=== PATIENT | female | born 1990 | race Caucasian/White ===

== ENCOUNTER 2018-12-07 21:01 | Inpatient (IN) | payer OTHER ==
[2018-12-07] MEDS ORDERED: LACTATED RINGER'S 1,000 ML IV (22:24)
[2018-12-07] MEDS: LACTATED RINGER'S 1,000 ML IV ×2 (22:26→23:06)
[2018-12-07] MEDS ORDERED: OXYTOCIN 30 UNITS/LR 500 ML IV (22:30)
[2018-12-07] MEDS ORDERED: CARBOPROST 250 MCG INJ IM (22:30)
[2018-12-07] MEDS ORDERED: METHYLERGONOVINE 0.2 MG INJ IM (22:30)
[2018-12-07] MEDS ORDERED: IBUPROFEN 600 MG TAB PO (22:30)
[2018-12-07] MEDS ORDERED: BUTORPHANOL 2 MG INJ IV (22:30)
[2018-12-07] MEDS ORDERED: MISOPROSTOL 200 MCG TAB PR (22:30)
[2018-12-07] MEDS ORDERED: LIDOCAINE 1% (MPF) 30 ML INJ INJ (22:30)
[2018-12-07 22:31] LABS: WHITE BLOOD COUNT 11.7 10^3/ul (4.8-10.8)
[2018-12-07 22:31] LABS: ADD MAN DIFF? NO; BASOPHILS % 0.3 % (0.0-2.0); EOSINOPHILS % 0.3 % (0.0-7.0); HEMATOCRIT 34.6 % (37.0-47.0); HEMOGLOBIN 11.2 g/dl (12.0-16.0); LYMPHOCYTES # 1.7 10^3/ul (0.8-2.9); LYMPHOCYTES % 14.8 % (15.0-51.0); MEAN CORPUSCULAR HEMOGLOBIN 26.6 pg (29.0-33.0); MEAN CORPUSCULAR HGB CONC 32.4 g/dl (32.0-37.0); MEAN CORPUSCULAR VOLUME 82.2 fl (82.0-101.0); MONOCYTE # 0.8 10^3/ul (0.3-0.9); MONOCYTES % 6.7 % (0.0-11.0); NEUTROPHIL # 9.1 10^3/ul (1.6-7.5); NEUTROPHILS % 77.5 % (39.0-77.0); PLATELET COUNT 286 10^3/UL (140-415); RED BLOOD COUNT 4.21 10^6/ul (4.20-5.40); RED CELL DISTRIBUTION WIDTH 14.4 % (11.5-14.5)
[2018-12-07 22:50] LABS: INR 0.86; PROTIME 11.8 Sec (11.9-14.9); PT RATIO 0.9
[2018-12-07 22:51] LABS: PARTIAL THROMBOPLASTIN TIME 27.1 Sec (23.0-35.0)
[2018-12-07 23:18] LABS: HEPATITIS B SURFACE ANTIGEN NEGATIVE (NEGATIVE)
[2018-12-07] MEDS ORDERED: FENTAnyl 2MCG/ML-ROPIV 0.2% 100 ML (23:20)
[2018-12-07] MEDS: FENTAnyl 2MCG/ML-ROPIV 0.2% 100 ML BAG EPI (23:57)
[2018-12-08] MEDS ORDERED: ONDANSETRON 4 MG INJ IV
[2018-12-08] MEDS ORDERED: NALOXONE (0.4 MG/ML) INJ IV
[2018-12-08] MEDS: OXYTOCIN 30 UNITS/LR 500 ML IV ×4 (00:45→21:02)
[2018-12-08] MEDS ORDERED: OXYTOCIN 30 UNITS/LR 500 ML IV (01:00)
[2018-12-08] MEDS ORDERED: METHYLERGONOVINE 0.2 MG INJ IM (01:00)
[2018-12-08] MEDS ORDERED: CARBOPROST 250 MCG INJ IM (01:00)
[2018-12-08] MEDS ORDERED: HYDROCODONE/APAP (5/325) TAB PO (01:00)
[2018-12-08] MEDS ORDERED: MISOPROSTOL 200 MCG TAB PR (01:00)
[2018-12-08] MEDS: IBUPROFEN 600 MG TAB PO ×3 (09:12→21:01)
[2018-12-08] MEDS: LANOLIN HPA 1 PKT TOP (09:12)
[2018-12-08 15:08] LABS: RAPID PLASMA REAGIN NONREACTIVE (NR)
[2018-12-08] MEDS: LACTATED RINGER'S 1,000 ML IV* ×3 (21:00→21:02)
[2018-12-09] MEDS: IBUPROFEN 600 MG TAB PO ×4 (00:31→17:14)
[2018-12-09] MEDS: LACTATED RINGER'S 1,000 ML IV* (00:51)
[2018-12-09 06:45] LABS: ADD MAN DIFF? NO
[2018-12-09 06:51] LABS: WHITE BLOOD COUNT 8.7 10^3/ul (4.8-10.8)
[2018-12-09 06:51] LABS: BASOPHILS % 0.2 % (0.0-2.0); EOSINOPHILS # 0.1 10^3/ul (0.0-0.5); EOSINOPHILS % 0.9 % (0.0-7.0); HEMATOCRIT 32.8 % (37.0-47.0); HEMOGLOBIN 10.4 g/dl (12.0-16.0); LYMPHOCYTES # 2.4 10^3/ul (0.8-2.9); LYMPHOCYTES % 27.1 % (15.0-51.0); MEAN CORPUSCULAR HEMOGLOBIN 26.7 pg (29.0-33.0); MEAN CORPUSCULAR HGB CONC 31.7 g/dl (32.0-37.0); MEAN CORPUSCULAR VOLUME 84.3 fl (82.0-101.0); MEAN PLATELET VOLUME 10.3 fl (7.4-10.4); MONOCYTE # 0.6 10^3/ul (0.3-0.9); NEUTROPHIL # 5.6 10^3/ul (1.6-7.5); NEUTROPHILS % 64.1 % (39.0-77.0); PLATELET COUNT 251 10^3/UL (140-415); RED BLOOD COUNT 3.89 10^6/ul (4.20-5.40); RED CELL DISTRIBUTION WIDTH 14.7 % (11.5-14.5)
[2018-12-09] MEDS: SENNA/DOCUSATE NA (8.6MG/50MG) TAB PO (09:20)
[2018-12-09] MEDS: LANOLIN HPA 1 PKT TOP (11:05)
[2018-12-09] MEDS: DIPHTH/TET/ACEL PERTUSS (ADULT) 0.5 ML VIAL IM* (16:51)
[2018-12-10] MEDS ORDERED: DIPHTH/TET/ACEL PERTUSS (ADULT) 0.5 ML VIAL IM* (09:00)
== END 2018-12-09 18:05 | disposition home or self-care (01) | DRG 998 ==
LOC: OBT 21:01 → PP1 12-08 02:30 → L-D 21:02 → OBT 21:50 → L-D 21:50
PROVIDERS: Specialist
PROC: 10D07Z6 Extraction of Products of Conception, Vacuum, Via Natural or Artificial Opening (ICD-10-PCS; principal; 2018-12-08)
PROC: 3E033VJ Introduction of Other Hormone into Peripheral Vein, Percutaneous Approach (ICD-10-PCS; 2018-12-08)
DX: O76 Abnormality in fetal heart rate and rhythm complicating labor and delivery (principal); O66.5 Attempted application of vacuum extractor and forceps; Z3A.38 38 weeks gestation of pregnancy
CPT/HCPCS: 62322; 85025; 85610; 85730; 86592; 86850; 86900; 86901; 87340; 90715; 99464